=== PATIENT | male | born 1980 | race Two or more races ===

== ENCOUNTER 2017-06-25 15:31 | Emergency (ER) | payer SELFPAY ==
[~2017-06-25] VITALS: Ht 175.3 cm; Wt 134.0 kg
[2017-06-25] MEDS ORDERED: WARF1TAB85 PO (15:45)
[2017-06-25 17:08] LABS: CHLORIDE 100 mEq/L (98-107)
[2017-06-25 17:14] LABS: INR 2.7; PROTHROMBIN TIME 27.8 sec (9.4-11.6)
[2017-06-25 17:15] LABS: HEMATOCRIT. 33.1 % (42.0-52.0); HEMOGLOBIN. 8.8 g/dL (14.0-18.0); MEAN PLATELET VOLUME 8.6 fl (7.4-10.4); PLATELET 295 x1000/uL (130-400); RED BLOOD CELL COUNT 6.75 mill/uL (4.7-6.1); RED CELL DISTRIBUTION WIDTH 26.3 % (11.6-14.6)
[2017-06-25 17:51] LABS: ATYPICAL LYMPHOCYTES 2; PLATELET ESTIMATE NORMAL
[2017-06-25] MEDS ORDERED: SODIUM CHLORIDE 0.9% 1,000 ML IV ONE (22:00)
[2017-06-25] MEDS ORDERED: MORPHINE SULFATE 4 MG/ML CPJ (NOT FOR IM USE) IV ONE (22:00)
[2017-06-25 22:13] VITALS: BP 145/70
== END 2017-06-25 23:25 | disposition left against medical advice (07) ==
LOC: ER 15:31 → CANBEDREQ 06-26 03:43
DX: K80.00 Calculus of gallbladder with acute cholecystitis without obstruction (principal); K56.609 Unspecified intestinal obstruction, unspecified as to partial versus complete obstruction; D50.9 Iron deficiency anemia, unspecified; D72.810 Lymphocytopenia; E88.09 Other disorders of plasma-protein metabolism, not elsewhere classified; E83.51 Hypocalcemia; R73.9 Hyperglycemia, unspecified; Z79.01 Long term (current) use of anticoagulants
CPT/HCPCS: 36415; 71045; 74176; 80053; 83036; 83880; 84484; 85025; 85610; 93005; 93970; 99285; J7030; Z7610